=== PATIENT | female | born 1995 | race American Indian/Alaskan Native ===

== ENCOUNTER 2025-02-22 04:58 | Inpatient (IN) | payer MEDICAID ==
[~2025-02-22 04:58] MED LIST: Sodium Chloride 0.9% 10 ML Syringe FLUSH PRN
[2025-02-22] MEDS ORDERED: Lactated Ringers 1,000 ML IV SCH ×2 (05:00→06:00)
[2025-02-22] MEDS: Lactated Ringers 1,000 ML IV SCH (05:45)
[2025-02-22 05:47] LABS: BASOPHILS ABSOLUTE AUTO 0.0 K/mm3 (0.0-0.2); BASOPHILS PERCENT AUTO 0.4 % (0.0-1.0); EOSINOPHILS ABSOLUTE AUTO 0.2 K/mm3 (0.0-0.4); EOSINOPHILS PERCENT AUTO 1.5 % (0.0-6.0); IMMATURE GRAN ABSOLUTE AUTO 0.07 K/mm3 (0.00-0.05); IMMATURE GRAN PERCENT AUTO 0.7 % (0.0-0.4); LYMPHOCYTES ABSOLUTE AUTO 2.0 K/mm3 (1.0-4.8); LYMPHOCYTES PERCENT AUTO 20.4 % (24.0-44.0); MEAN PLATELET VOLUME 8.6 fl (9.4-12.3); MONOCYTES ABSOLUTE AUTO 0.6 K/mm3 (0.0-0.8); MONOCYTES PERCENT AUTO 6.5 % (0.0-8.0); NEUTROPHILS ABSOLUTE AUTO 6.9 K/mm3 (1.8-7.7); NEUTROPHILS PERCENT AUTO 70.5 % (41.0-71.0); NRBC ABSOLUTE 0.08 (0.00-0.02); NRBC PERCENT 0.8 % (0.0-0.2); PLATELET COUNT,PLT 487 K/mm3 (150-400); RED BLOOD CELL COUNT 4.31 M/mm3 (4.10-5.30); WHITE BLOOD CELL COUNT,WBC 9.82 K/mm3 (3.9-11.3)
[2025-02-22] MEDS ORDERED: Oxytocin/0.9 % Sodium Chloride 30 UNIT/500 ML BAG IV SCH (06:00)
[2025-02-22] MEDS ORDERED: Morphine PF 10 MG/10 ML SDV ONE (06:41)
[2025-02-22] MEDS ORDERED: Ondansetron 4 MG/2 ML SDV ONE (06:41)
[2025-02-22] MEDS ORDERED: Phenylephrine 1% 10 MG/ML SDV ONE (06:41)
[2025-02-22] MEDS ORDERED: dexmedeTOMIDine HCl 200 MCG/2 ML SDV ONE (06:41)
[2025-02-22] MEDS: Citric Acid/Sodium Citrate Solution 30 ML Cup PO ONE ×2 (07:11→20:01)
[2025-02-22] MEDS ORDERED: Sodium Chloride 0.9% 50 ML SDV ONE (07:46)
[2025-02-22] MEDS ORDERED: Ropivacaine 0.5% 5 MG/ML 30 ML SDV ONE (07:47)
[2025-02-22] MEDS ORDERED: ePHEDrine 50 MG/ML SDV ONE (08:04)
[2025-02-22] MEDS ORDERED: Ketorolac 30 MG/ML SDV ONE (08:06)
[2025-02-22] MEDS ORDERED: Ondansetron 4 MG/2 ML SDV IVPUSH PRN (08:39)
[2025-02-22] MEDS ORDERED: fentaNYL 100 MCG/2 ML SDV IVPUSH PRN (08:39)
[2025-02-22] MEDS ORDERED: Acetaminophen/oxyCODONE 325-5 MG Tab PO PRN (09:31)
[2025-02-22] MEDS ORDERED: Naloxone 0.4 MG/ML SDV IVPUSH PRN (09:31)
[2025-02-22] MEDS ORDERED: ePHEDrine 50 MG/ML SDV IVPUSH PRN (09:31)
[2025-02-22] MEDS: Oxytocin/0.9 % Sodium Chloride 30 UNIT/500 ML BAG IV SCH (09:32)
[2025-02-22 10:07] LABS: BASOPHILS ABSOLUTE AUTO 0.0 K/mm3 (0.0-0.2); BASOPHILS PERCENT AUTO 0.5 % (0.0-1.0); EOSINOPHILS ABSOLUTE AUTO 0.1 K/mm3 (0.0-0.4); EOSINOPHILS PERCENT AUTO 1.3 % (0.0-6.0); IMMATURE GRAN ABSOLUTE AUTO 0.07 K/mm3 (0.00-0.05); IMMATURE GRAN PERCENT AUTO 0.8 % (0.0-0.4); LYMPHOCYTES ABSOLUTE AUTO 1.4 K/mm3 (1.0-4.8); LYMPHOCYTES PERCENT AUTO 16.8 % (24.0-44.0); MEAN PLATELET VOLUME 8.7 fl (9.4-12.3); MONOCYTES ABSOLUTE AUTO 0.6 K/mm3 (0.0-0.8); MONOCYTES PERCENT AUTO 7.6 % (0.0-8.0); NEUTROPHILS ABSOLUTE AUTO 6.1 K/mm3 (1.8-7.7); NEUTROPHILS PERCENT AUTO 73.0 % (41.0-71.0); NRBC ABSOLUTE 0.04 (0.00-0.02); NRBC PERCENT 0.5 % (0.0-0.2); PLATELET COUNT,PLT 349 K/mm3 (150-400); RED BLOOD CELL COUNT 2.89 M/mm3 (4.10-5.30); WHITE BLOOD CELL COUNT,WBC 8.31 K/mm3 (3.9-11.3)
[2025-02-22 10:26] LABS: INR 1.03
[2025-02-22] MEDS: diphenhydrAMINE 50 MG/ML SDV IVPUSH PRN (13:43)
[2025-02-22] MEDS: Lactated Ringers 500 ML IV ONE (15:22)
[2025-02-22 17:29] LABS: BASOPHILS ABSOLUTE AUTO 0.0 K/mm3 (0.0-0.2); BASOPHILS PERCENT AUTO 0.2 % (0.0-1.0); EOSINOPHILS ABSOLUTE AUTO 0.0 K/mm3 (0.0-0.4); EOSINOPHILS PERCENT AUTO 0.3 % (0.0-6.0); IMMATURE GRAN ABSOLUTE AUTO 0.07 K/mm3 (0.00-0.05); IMMATURE GRAN PERCENT AUTO 0.6 % (0.0-0.4); LYMPHOCYTES ABSOLUTE AUTO 1.5 K/mm3 (1.0-4.8); LYMPHOCYTES PERCENT AUTO 13.5 % (24.0-44.0); MEAN PLATELET VOLUME 8.8 fl (9.4-12.3); MONOCYTES ABSOLUTE AUTO 0.6 K/mm3 (0.0-0.8); MONOCYTES PERCENT AUTO 5.8 % (0.0-8.0); NEUTROPHILS ABSOLUTE AUTO 8.6 K/mm3 (1.8-7.7); NEUTROPHILS PERCENT AUTO 79.6 % (41.0-71.0); NRBC ABSOLUTE 0.07 (0.00-0.02); NRBC PERCENT 0.6 % (0.0-0.2); PLATELET COUNT,PLT 228 K/mm3 (150-400); RED BLOOD CELL COUNT 2.98 M/mm3 (4.10-5.30); WHITE BLOOD CELL COUNT,WBC 10.82 K/mm3 (3.9-11.3)
[2025-02-22] MEDS: Ketorolac 30 MG/ML SDV IVPUSH SCH (18:00)
[2025-02-22] MEDS: Sodium Chloride 0.9% 10 ML Syringe FLUSH SCH (20:01)
[2025-02-23 05:46] LABS: BASOPHILS ABSOLUTE AUTO 0.1 K/mm3 (0.0-0.2); BASOPHILS PERCENT AUTO 0.6 % (0.0-1.0); EOSINOPHILS ABSOLUTE AUTO 0.2 K/mm3 (0.0-0.4); EOSINOPHILS PERCENT AUTO 1.2 % (0.0-6.0); IMMATURE GRAN ABSOLUTE AUTO 0.10 K/mm3 (0.00-0.05); IMMATURE GRAN PERCENT AUTO 0.8 % (0.0-0.4); LYMPHOCYTES ABSOLUTE AUTO 1.9 K/mm3 (1.0-4.8); LYMPHOCYTES PERCENT AUTO 15.1 % (24.0-44.0); MEAN PLATELET VOLUME 9.0 fl (9.4-12.3); MONOCYTES ABSOLUTE AUTO 1.1 K/mm3 (0.0-0.8); MONOCYTES PERCENT AUTO 8.9 % (0.0-8.0); NEUTROPHILS ABSOLUTE AUTO 9.0 K/mm3 (1.8-7.7); NEUTROPHILS PERCENT AUTO 73.4 % (41.0-71.0); NRBC ABSOLUTE 0.06 (0.00-0.02); NRBC PERCENT 0.5 % (0.0-0.2); PLATELET COUNT,PLT 224 K/mm3 (150-400); RED BLOOD CELL COUNT 3.16 M/mm3 (4.10-5.30); WHITE BLOOD CELL COUNT,WBC 12.27 K/mm3 (3.9-11.3)
[2025-02-23] MEDS: Ketorolac 30 MG/ML SDV IVPUSH SCH (06:06)
[2025-02-23] MEDS: Acetaminophen/oxyCODONE 325-5 MG Tab PO PRN (10:48)
[2025-02-24 17:54] VITALS: BP 120/74; PULSE 96
== END 2025-02-24 16:40 | disposition home or self-care (01) | DRG 787 ==
LOC: JD.OB 04:58
PROVIDERS: ADMIT Obstetrics & Gynecology; ATTEND Obstetrics & Gynecology
PROC: 10D00Z1 Extraction of Products of Conception, Low, Open Approach (ICD-10-PCS; principal; 2025-02-22 07:30)
PROC: 30233N1 Transfusion of Nonautologous Red Blood Cells into Peripheral Vein, Percutaneous Approach (ICD-10-PCS; principal; 2025-02-22 07:30)
DX: O34.211 Maternal care for low transverse scar from previous cesarean delivery (principal); D62 Acute posthemorrhagic anemia; O72.1 Other immediate postpartum hemorrhage; O99.02 Anemia complicating childbirth; Z3A.39 39 weeks gestation of pregnancy; Z37.0 Single live birth; Z90.49 Acquired absence of other specified parts of digestive tract; Z87.891 Personal history of nicotine dependence
CPT/HCPCS: 01961; 36415; 36430; 59025; 64488; 85025; 85384; 85610; 86592; 86850; 86900; 86901; 86922; A9270-GY; J0665; J0690; J0694; J1200; J1885; J2274; J2371; J2405; J2765; J2795; J3490; J7030; J7120; J7121; J7999; P9016